=== PATIENT | female | born 1950 | race Caucasian/White ===

== ENCOUNTER → 2023-12-23 | Outpatient (CLI) | payer MEDICARE, OTHER ==
[2023-12-23 19:19] LABS: BASOPHILS ABSOLUTE AUTO 0.02 K/mm3 (0.00-0.23); BASOPHILS PERCENT AUTO 0 % (0-2); EOSINOPHILS ABSOLUTE AUTO 0.22 K/mm3 (0.00-0.68); EOSINOPHILS PERCENT AUTO 3 % (0-6); Hematocrit 40.2 % (33.0-51.0); Hemoglobin 13.3 g/dL (11.5-16.0); IMMATURE GRAN ABSOLUTE AUTO 0.01 K/mm3 (0.00-0.10); IMMATURE GRAN PERCENT AUTO 0 % (0-1); LYMPHOCYTES ABSOLUTE AUTO 1.79 K/mm3 (0.84-5.20); LYMPHOCYTES PERCENT AUTO 28 % (21-46); MONOCYTES ABSOLUTE AUTO 0.38 K/mm3 (0.16-1.47); MONOCYTES PERCENT AUTO 6 % (4-13); Mean Corpuscular HGB 30.1 pg (26.0-34.0); Mean Corpuscular HGB Conc 33.1 g/dL (31.5-36.5); Mean Corpuscular Volume 91 fL (80-100); Mean Platelet Volume 10.2 fL (9.1-12.4); NEUTROPHILS ABSOLUTE AUTO 4.08 K/mm3 (1.96-9.15); NEUTROPHILS PERCENT AUTO 63 % (41-73); Platelet Count 339 K/mm3 (150-400); RDW Coefficient Variation 14.9 % (11.7-14.2); Red Blood Cell Count 4.42 M/mm3 (3.80-5.20)
[2023-12-23 19:57] LABS: Albumin, Blood 3.5 g/dL (3.4-5.0); Albumin/Globulin Ratio 1.1 (0.8-1.8); Bilirubin, Total 0.3 mg/dL (0.1-1.0); Bun/Creatinine Ratio 25.3 (12.0-20.0); Calcium, Blood 8.9 mg/dL (8.5-10.1); Creatinine, Blood 0.83 mg/dL (0.40-1.00); Globulin, Blood 3.2 g/dL (2.2-4.0); Thyroid Stimulating Hormone 6.99 uIU/mL (0.360-4.800); Total Protein, Blood 6.7 g/dL (6.4-8.2)
== END ==
LOC: LAB SHORT 18:26 → LAB 18:26
PROVIDERS: Physician Assistant
DX: R22.43 Localized swelling, mass and lump, lower limb, bilateral (principal)
CPT/HCPCS: 80053; 84443; 85025

== ENCOUNTER 2024-09-16 08:53 | Day surgery (SDC) | payer MEDICARE, OTHER ==
[~2024-09-16] VITALS: Ht 152.4 cm; Wt 109.0 kg
[2024-09-16] VITALS (15 sets, daily range): BP systolic 91–157; BP diastolic 72–98
[~2024-09-16 08:53] MED LIST: ALBU90OI INH; ASPI81CH PO; Acetaminophen 500 MG Tab PO SCH; Budeprion Xl300 MG PO; Bupivacaine HCl 0.25% 30 ML Injection ONE; CeFAZolin Sodium 2,000 MG in NS 100 ML IV SCH; Chlorhexidine Mouth Care 15 ML UDC MT SCH; Crestor40 MG PO; EUTHYROX50 MCG PO; FISH OIL 1,0001 EA10 PO; FentaNYL Citrate 50 MCG/ML 2 ML Injection ONE; GABA100 PO; LIOT5 PO; Lactated Ringer's 1,000 ML IV SCH; Midazolam HCl 1MG / ML 2ML Vial ONE; OxyCODONE HCL 10 MG TABCR PO SCH; Rocuronium Bromide 10 MG/ML 5ML Injection IV ONE; Ropivacaine 0.5% HCl/Pf 123.125 MG,EPINEPHrine HCL 0.25 MG,Ketorolac Tromethamine 15 MG... INFIL SCH; Tranexamic Acid 100 ML IV SCH; VENL37.5 PO; Vitamin D1000 UNI1 PO; propofoL 20 ML IV ONE
[2024-09-16] MEDS ORDERED: Phenylephrine HCl 100 MCG/ML-NS 10MLSYR (1MG/10ML) ONE (09:54)
--- NOTE | 2024-09-16 09:58 | NUR ---
INTO SDS VIA W/C . PT CANNOT WALK LONG DISTANCES Pre-Op teaching done. Pt verbalizes understanding. History, Chart, Medications and Allergies reviewed before start of procedure.Patient confirms NPO status and agrees with scheduled surgery. Patient reports completing Chlorhexadine shower X2 prior to admission to hospital.Patient States Post-Procedure ride home has been arranged. 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 [place] IN RIGHT EAR.
--- NOTE | 2024-09-16 10:00 | NUR ---
0942 TIME OUT PREFORMED W/ DR. TORRES FOR RIGHT INTERSCALENE BLOCK. 02 ON AT 2L/MIN VIA NC. CONT. PULSE OX 97-100%, HR = 77-80
[2024-09-16] MEDS ORDERED: ePHEDrine Sulfate 50 MG/ML 1ML Injection ONE (10:26)
[2024-09-16] MEDS ORDERED: Glycopyrrolate 0.2 MG/ML 5ML VIAL ONE (10:41)
[2024-09-16] MEDS ORDERED: FentaNYL Citrate 50 MCG/ML 2 ML Injection IV PRN ×2 (10:50)
[2024-09-16] MEDS ORDERED: Labetalol HCL 5 MG/ML 4ML Injection (Single Dose) IV PRN (10:50)
[2024-09-16] MEDS ORDERED: Albuterol 2.5 MG/3 ML VIAL INH PRN (10:50)
[2024-09-16] MEDS ORDERED: Ondansetron HCl 2 MG / ML 2ML Vial IV PRN ×2 (10:50→13:10)
[2024-09-16] MEDS ORDERED: HYDROmorphone HCl/Pf 1MG SYR IV PRN ×2 (10:50→13:15)
[2024-09-16] MEDS ORDERED: Sugammadex Sodium 200 MG/2ML SDV (100 MG/ML) ONE (12:09)
[2024-09-16] MEDS ORDERED: Magnesium Hydroxide Conc 10 ML UDC PO PRN (13:10)
[2024-09-16] MEDS ORDERED: OxyCODONE HCL 5 MG TAB PO PRN ×2 (13:10→13:15)
[2024-09-16] MEDS ORDERED: Bisacodyl 10 MG Supp PR PRN (13:10)
[2024-09-16] MEDS ORDERED: Metoclopramide HCl 5MG / ML 2ML Vial IV PRN (13:10)
[2024-09-16] MEDS ORDERED: DiphenhydrAMINE HCL 25 MG Cap PO PRN (13:15)
--- NOTE | 2024-09-16 13:31 | NUR ---
ARRIVAL TO UNIT PT ARRIVED TO UNIT FROM PACU VIA BED. PT A&O x4, ANSWERS QUESTIONS APPROPRIATELY. VSS. TOLERATING LIQUID PO INTAKE, PT DENIES NAUSEA. DRESSING TO R SHOULDER C/D/I, BRACE IN PLACE. PT REPORTS DECRESED SENSATION TO RUE S/P NERVE BLOCK, ABLE TO WIGGLE FINGERS, BRISK CAP REFILL. PT REPORTS PAIN 0/10. [facility] ORIENT[facility], CALL LIGHT IN REACH.
[2024-09-16] MEDS ORDERED: Lactated Ringer's 1,000 ML IV SCH (13:45)
[2024-09-16] MEDS ORDERED: Acetaminophen 500 MG Tab PO SCH (16:00)
--- NOTE | 2024-09-16 17:52 | NUR ---
DISCHARGE SUMMARY POD 0 R REVERSE TSA. VSS. TOLERATING ORALS, DENIES N/V. VOIDING. AMBULATING IND, STEADY GAIT. DRESSING TO R SHOULDER C/D/I. SLING IN PLACE. PT DEMONSTRATED APPROPRIATE ADLs c SURGICAL RESTRICTIONS. PT REPORTS PAIN TOLERABLE, MEDICATED PER EMAR & POLAR PACK USEAGE. MED REC COMPLETE & REVIEWED c PT. PT VERBALIZES UNDERSTANDING OF D/C INSTRUCTIONS. SISTED @ BEDSIDE FOR ALL EDUCATION. D/C HOME VIA WHEELCHAIR TO POV, DRIVEN BY SISTER. ALL PERSONAL BELONGINGS c PT.
[2024-09-16] MEDS ORDERED: Ketorolac Tromethamine 15mg Vial IV SCH (18:00)
[2024-09-16] MEDS ORDERED: CeFAZolin Sodium 2,000 MG in NS 100 ML IV SCH (19:00)
[2024-09-16] MEDS ORDERED: Docusate Sodium 100 MG Cap PO SCH (21:00)
== END 2024-09-16 17:50 | disposition home or self-care (01) ==
LOC: ORSCMMR 08:53 → ORD 10:45 → SURS 13:28 → ORSCMMR 17:50
PROVIDERS: Orthopaedic Surgery
PROC: 0RRJ00Z Replacement of Right Shoulder Joint with Reverse Ball and Socket Synthetic Substitute, Open Approach (ICD-10-PCS; principal; 2024-09-16 10:00)
DX: M19.011 Primary osteoarthritis, right shoulder (principal); J44.9 Chronic obstructive pulmonary disease, unspecified; R73.03 Prediabetes; E03.9 Hypothyroidism, unspecified; N18.30 Chronic kidney disease, stage 3 unspecified; G47.33 Obstructive sleep apnea (adult) (pediatric); F32.A Depression, unspecified; Z79.899 Other long term (current) drug therapy
CPT/HCPCS: 73030; 82947; A9270; C1713; C1776; J0171; J0690; J0735; J1885; J2250; J2371; J2704; J2795; J3010; J7120